=== PATIENT | female | born 1960 | race Caucasian/White ===

== ENCOUNTER 2018-02-05 16:21 | Emergency (ER) | payer SELFPAY ==
[~2018-02-05] VITALS: Ht 162.6 cm; Wt 62.3 kg
[2018-02-05 17:44] LABS: HEMATOCRIT 41.2 % (36.0-46.0); MCH 35.9 PG (29.0-34.0); MCHC 36.4 G/DL (30.0-36.0); MCV 98.6 FL (83-99); PLATELET COUNT 79 K/uL (156-360); RBC DIS.WIDTH-CV 11.4 % (11.8-14.6); RBC DIS.WIDTH-SD 41.5 % (39-53); RED BLOOD COUNT 4.18 M/uL (3.80-5.20); WHITE BLOOD COUNT 2.6 K/uL (4.1-10.2)
[2018-02-05 17:58] LABS: ALBUMIN 4.2 g/dL (3.2-4.8); CHLORIDE 101 mEq/L (99-109); POTASSIUM 3.9 mEq/L (3.7-5.4); SODIUM 136 mEq/L (136-147)
[2018-02-05 18:01] LABS: GLUCOSE 108 mg/dL (70-99); TOTAL PROTEIN 7.1 g/dL (6.4-8.3)
[2018-02-05 18:03] LABS: TOTAL BILIRUBIN 1.2 mg/dL (0.0-1.0)
[2018-02-05 18:04] LABS: ALKALINE PHOSPHATASE 70 IU/L (3-129)
[2018-02-05 18:05] LABS: CREATININE 0.8 mg/dL (0.6-1.3); GFR ESTIMATE (CALCULATED) > 59 mL/min/
[2018-02-05 18:06] LABS: AST (GOT) 105 IU/L (2-34); DIRECT BILIRUBIN 0.5 mg/dL (0.0-0.3); UREA NITROGEN (BUN) 7 mg/dL (9-23)
[2018-02-05 18:07] LABS: ALT (GPT) 91 IU/L (3-49)
[2018-02-05 18:17] LABS: TROP-I INTERPRETATION NEGATIVE; TROPONIN-I 0.03 ng/mL (0.0-0.30)
[2018-02-05 20:35] LABS: APPEARANCE CLEAR ((CLEAR)); BILIRUBIN NEGATIVE; BLOOD NEGATIVE; COLOR STRAW ((YELLOW)); GLUCOSE (STRIP) NEGATIVE; KETONES NEGATIVE; LEUKOCYTES NEGATIVE; NITRITE NEGATIVE; PROTEIN (STRIP) NEGATIVE; SPECIFIC GRAVITY 1.004 (1.000-1.030); UCUL ADDED? NO; UROBILINOGEN 0.2 MG/DL (0.2-1.0)
[2018-02-05 20:41] LABS: CREATINE KINASE 41 IU/L (1-294)
[2018-02-05] MEDS ORDERED: VIBRAMYCIN100 MG PO (21:25)
[2018-02-05] MEDS ORDERED: ZOFRAN ODT4 MG PO (21:25)
[2018-02-05 21:41] VITALS: BP 107/68
== END 2018-02-05 21:48 | disposition home or self-care (01) ==
LOC: EME 16:21
PROVIDERS: Physician Assistant Medical
PROC: 3E0234Z Introduction of Serum, Toxoid and Vaccine into Muscle, Percutaneous Approach (ICD-10-PCS; principal; 2018-02-05)
DX: S70.262A Insect bite (nonvenomous), left hip, initial encounter (principal); T63.301A Toxic effect of unspecified spider venom, accidental (unintentional), initial encounter; R11.2 Nausea with vomiting, unspecified; R50.9 Fever, unspecified; Z23 Encounter for immunization; J98.4 Other disorders of lung; Z88.2 Allergy status to sulfonamides; F17.200 Nicotine dependence, unspecified, uncomplicated
CPT/HCPCS: 71046; 80048; 80076; 81003; 82550; 82550 91; 83605; 84484; 85027; 87040; 93005; 99281; 99285; J2405; J7030